=== PATIENT | male | born 1955 | race Caucasian/White ===

== ENCOUNTER 2019-01-27 06:00 | Day surgery (SDC) | payer OTHER ==
[2019-01-27] MEDS ORDERED: ONDANSETRON 4 MG INJ IV (07:30)
[2019-01-27] MEDS ORDERED: morphine (1 MG/ML) 10ML SYRINGE IV (07:30)
[2019-01-27] MEDS ORDERED: LIDOCAINE 2% (SDV) 5 ML INJ (07:32)
[2019-01-27] MEDS ORDERED: PROPOFOL 40 ML (07:32)
[2019-01-27] MEDS ORDERED: PROPOFOL 20 ML (08:26)
== END 2019-01-27 10:57 | disposition home or self-care (01) ==
LOC: GIL 06:00
DX: Z12.11 Encounter for screening for malignant neoplasm of colon (principal); D12.5 Benign neoplasm of sigmoid colon; K64.8 Other hemorrhoids
CPT/HCPCS: 45380; 88305